=== PATIENT | male | born 1985 | race African-American/Black ===

== ENCOUNTER 2021-04-10 17:19 | Emergency (ER) | payer OTHER ==
[~2021-04-10] VITALS: Ht 188 cm; Wt 103.0 kg
--- NOTE | 2021-04-10 17:49 | PHYS DOC ---
Past History Past Surgical History: No Surgical History (ROMA ZAMUDIO APRN) Alcohol Use: Occasionally (ROMA ZAMUDIO APRN) General Adult EDM: Chief Complaint: PAIN ON URINATION HPI: HPI: Patient is a 35-year-old male who presents to the ER today for dysuria. Patient reports that he was seen yesterday and he thought he had a UTI. He reports that he was not discharged with any antibiotics. He reports that the pain is gotten worse. He rates his pain 10 out of 10. He has been taking Azo [id number]. He denies nausea, vomiting, fevers, abdominal pain, flank pain. (ROMA ZAMUDIO APRN) Review of Systems: Review of Systems: 14 body systems of the review of systems have been reviewed. See HPI for pertinent positive and negative responses, otherwise all other systems are negative, nonpertinent or noncontributory (ROMA ZAMUDIO APRN) Physical Exam: PE: Constitutional: Well developed, well nourished, no acute distress, non-toxic appearance. [] HENT: Normocephalic, atraumatic, bilateral external ears normal, oropharynx moist, no oral exudates, nose normal. [] Eyes: PERRL, EOMI, conjunctiva normal, no discharge. [] Neck: Normal range of motion, no stridor Cardiovascular:Heart rate regular rhythm, no murmur [] Lungs & Thorax: Bilateral breath sounds clear to auscultation [] Abdomen: Bowel sounds normal, soft, no tenderness, no masses, no pulsatile masses. [] Skin: Warm, dry, no erythema, no rash. [] Back: No tenderness, no CVA tenderness. [] Extremities: No tenderness, no cyanosis, no clubbing, ROM intact, no edema. [] Neurologic: Alert and oriented X 3, normal motor function, normal sensory function, no focal deficits noted. [] Psychologic: Affect normal, judgement normal, mood normal. [] (ROMA ZAMUDIO APRN) Current Patient Data: Labs: Laboratory Tests Test 04/10/21 17:48 Urine Collection Type Void Urine Color [place] Urine Clarity Hazy Urine pH Urine Specific [place] Urine Protein Urine Glucose (UA) mg/dL Urine Ketones (Stick) mg/dL Urine Blood Urine Nitrite Urine Bilirubin Urine Urobilinogen Dipstick mg/dL Urine Leukocyte Esterase Urine RBC 3-5 /HPF Urine WBC 5-10 /HPF Urine Bacteria 0 /HPF Urine Mucus Mod /LPF Vital Signs: Vital Signs Date Time Temp Pulse Resp B/P (MAP) Pulse Ox O2 Delivery O2 Flow Rate FiO2 04/10/21 17:28 98.8 55 16 131/83 97 (ROMA ZAMUDIO APRN) EKG: EKG: [] (ROMA ZAMUDIO APRN) Radiology/Procedures: Radiology/Procedures: [] (ROMA ZAMUDIO APRN) Heart Score: C/O Chest Pain: No Risk Factors: Risk Factors: DM, Current or recent (<one month) smoker, HTN, HLP, family history of CAD, obesity. Risk Scores: Score 0 - 3: 2.5% MACE over next 6 weeks - Discharge Home Score 4 - 6: 20.3% MACE over next 6 weeks - Admit for Clinical Observation Score 7 - 10: 72.7% MACE over next 6 weeks - Early Invasive Strategies (ROMA ZAMUDIO APRN) Course & Med Decision Making: Course & Med Decision Making Pertinent Labs and Imaging studies reviewed. (See chart for details) [] Patient is a 35-year-old male being seen for dysuria. A urinalysis was performed and it showed white blood cell counts but no bacteria but unable to obtain complete urinalysis due to discoloration of urine from Azo. A urine culture was sent out patient will be notified of those results when they become available. Patient would also like to be tested for gonorrhea and chlamydia as patient notified RN that he was having some penile crusting prior to discharge. This result is pending and patient will be notified of the results when it becomes available. Patient reports that he would like to be prophylactically t reated for gonorrhea and chlamydia. Antibiotics ordered for patient for ER and outpatient therapy. I discussed with patient all findings and diagnostic testing as well as the need to follow-up with PCP for further evaluation and treatment or return to the ER if any new or worsening symptoms. Strict return precautions were also discussed at length. Patient voiced understanding and agreement with the plan. Patient is hemodynamically stable at the time of disposition. (ROMA ZAMUDIO APRN) Dragon Disclaimer: Dragon Disclaimer: This electronic medical record was generated, in whole or in part, using a voice recognition dictation system. (ROMA ZAMUDIO APRN) Attending Co-Sign The patient was seen and interviewed as well as examined at the bedside. The chart was reviewed. The case was discussed. Agree with the plan of care. (HYACINTH GAMBOA DO) Departure Departure: Impression: Primary Impression: Dysuria Disposition: 01 HOME / SELF CARE / HOMELESS Condition: GOOD Referrals: JOSEPH GOMEZ (PCP) Patient Instructions: Dysuria Additional Instructions: You were seen in the ER for dysuria. As we discussed, your urinalysis was contaminated by the Azo that you were taking. Your urine will be sent off for culture and we will call you with those results. Your urine was also tested for gonorrhea and chlamydia and we will call you with those results. You were prophylactically treated for gonorrhea chlamydia in the ER today. Please abstain from sexual intercourse for 7 to 10 days. You are being discharged home with a prescription for an antibiotic please make sure that you start and finish it completely. Follow-up with your primary care provider tomorrow if needed. Please return to the ER if you have worsening of your pain, abdominal pain, severe back pain, uncontrollable nausea or vomiting, fevers. EMERGENCY DEPARTMENT GENERAL DISCHARGE INSTRUCTIONS Thank you for coming to [facility] (ED) today and trusting us with you care. We trust that you had a positivie experience in our Emergency Department. If you wish to speak to the department management, you may call the director at [phone]. YOUR FOLLOW UP INSTRUCTIONS ARE FOLLOWS: 1. Do you have a private Doctor? If you do not have a private doctor, please ask for a resource list of physicians or clinics that may be able to assist you with follow up care. 2. The Emergency Physician has interpreted your x-rays. The X-Ray specialist will also review them. If there is a change in the findings, you will be notified in 48 hours when at all possible. 3. A lab test or culture has been done, your results will be reviewed and you will be notified if you need a change in treatment. ADDITIONAL INSTRUCTIONS AND INFORMATION: 1. Your care today has been supervised by a physician who is specially trained in emergency care. Many problems require more than one evaluation for a complete diagnosis and treatment. We recommend that you schedule your follow up appointment as recommended to ensure complete treatment of you illness or injury. If you are unable to obtain follow up care and continue to have a problem, or if your condition worsens, we recommend that you return to the ED. 2. We are not able to safely determine your condition over the phone nor are we able to give sound medical advice over the phone. For these safety reasons, if you call for medical advice we will ask you to come to the ED for further evaluation. 3. If you have any questions regarding these discharge instructions please call the ED at [phone]. SAFETY INFORMATION: In the interest of safety, wellness, and injury prevention; we encourage you to wear your sealbelt, if you smoke; quite smoking, and we encourage family to use a protective helmet for bicycling and other sporting events that present an increased risk for head injury. IF YOUR SYMPTOMS WORSEN OR NEW SYMPTOMS DEVELOP, OR YOU HAVE CONCERNS ABOUT YOUR CONDITION; OR IF YOUR CONDITION WORSENS WHILE YOU ARE WAITING FOR YOUR FOLLOW UP APPOINTMENT; EITHER CONTACT YOUR PRIMARY CARE DOCTOR, THE PHYSICIAN WHOSE NAME AND NUMBER YOU WERE GIVEN, OR RETURN TO THE ED IMMEDIATELY. Scripts Doxycycline Hyclate (DOXYCYCLINE HYCLATE) 100 Mg Tablet 1 TAB PO BID for sti for 7 Days, #14 TAB 0 Refills Prov: ROMA ZAMUDIO APRN 04/10/21 ROMA ZAMUDIO APRN Apr 10, 2021 17:49 HYACINTH GAMBOA DO Apr 12, 2021 03:28
[2021-04-10 18:48] LABS: CLARITY,URINE HAZY; COLOR,URINE ORANGE
[2021-04-10 18:49] LABS: BACTERIA,URINE 0 /HPF (0-FEW)
[2021-04-10] MEDS ORDERED: DOXY100T PO (20:20)
[2021-04-10 20:25] VITALS: BP 145/92
[2021-04-10] MEDS: DOXYCYCLINE HYCLATE 100 MG TABLET PO ONE (20:30)
[2021-04-10] MEDS: cefTRIAXone IM 500 MG VIAL. IM ONE (20:30)
== END 2021-04-10 20:37 | disposition home or self-care (01) ==
LOC: ER 17:19
DX: R30.0 Dysuria (principal)
CPT/HCPCS: 36415; 81001; 87086; 87491; 87591; 96372; 99283; J0696